=== PATIENT | male | born 1990 | race Caucasian/White ===

== ENCOUNTER → 2016-09-08 | Outpatient (CLI) | payer OTHER ==
[~2016-09-08] MED LIST: PRED20TA PO
[2016-09-08 14:00] VITALS: BP 129/78
--- NOTE | 2016-09-08 14:00 | Urgent Care T Sheet Gen (E) ---
Intake General Temperature (Fahrenheit): 98.3 Pulse: 69 Blood Pressure Systolic: 129 Blood Pressure Diastolic: 78 Respirations: 18 SPO2: 100 Description of Symptoms patient presents with illness since yesterday. notes fever, ORTIZ and sore throat. no cough or congestion. Took Advil earlier today. Respiratory Constitutional Symptoms: Fever Malaise EENTM: Throat pain Respiratory: No symptoms reported Cardiovascular: No symptoms reported Neurological: Headache All Other Systems Reviewed Remaining Systems: All other systems reviewed with negative findings Physical Exam Physical Exam General Appearance: WD/WN No apparent distress Eyes, Ears, Nose, Throat Ex: TMs normal Pharyngeal erythemaNo Tonsillar exudate Neck Exam: Supple Lymphadenopathy (anterior cervical) Respiratory Exam: Lungs clear Normal breath sounds Cardiovascular Exam: Regular rate, rhythm Progress/Orders Lab Results Labs Results: Rapid Strep (negative) Departure Urgent Care Impression Impression: Primary Impression: Viral pharyngitis Departure Disposition: 01 HOME OR SELF-CARE Condition: Stable Additional Instructions: Rapid strep was negative. Most likely a viral pharyngitis. I have started the patient on Prednisone x 3 days for inflammation and pain. No NSAIDs while on steroid Rest. Fluids Return as needed Patient understands DC instructions. All questions were answered. Scripts Prednisone 20 Mg [id number] Mg PO DAILY #6 TAB Prov:EMERSON LOTT 09/08/16 End of report . EMERSON LOTT Sep 08, 2016 13:47
== END ==
LOC: MHUC 13:37
PROVIDERS: ATTEND Physician Assistant
DX: J02.8 Acute pharyngitis due to other specified organisms (principal)
CPT/HCPCS: 87880; 99203